=== PATIENT | male | born 1985 | race African-American/Black ===

== ENCOUNTER 2016-09-11 11:57 | Emergency (ER) | payer OTHER ==
[~2016-09-11] VITALS: Ht 170.2 cm; Wt 68.5 kg
[~2016-09-11 11:57] MED LIST: Coumadin dosing per PO; Coumadin,Jantoven PO; Cymbalta PO; DUONEB3 ML IH; Dulcolax PO; Dulcolax PR; Flexeril PO; Habitrol,Nicoderm CQ TD; K-Dur PO; Lioresal PO; Maalox, Mylanta PO; Milk Of Magnesia,MOM PO; Neosporin Ointment TP; PROTONIX40 MG PO; Remove Nicotine Patc TD; SENOKOT S,PE1 TABLET PO; THERAGRAN1 TABLET PO; Zofran PO; oxyCODONE PO
[2016-09-11] MEDS ORDERED: NAPROXEN500 MG PO (18:13)
[2016-09-11 18:26] VITALS: BP 139/100
== END 2016-09-11 18:28 | disposition home or self-care (01) ==
LOC: RME 11:57 → EME 11:57 → RME 18:28
DX: M79.662 Pain in left lower leg (principal); Z79.01 Long term (current) use of anticoagulants; F17.200 Nicotine dependence, unspecified, uncomplicated
CPT/HCPCS: 93971; 99281; 99284

== ENCOUNTER 2017-06-03 14:00 | Emergency (ER) | payer OTHER ==
[~2017-06-03] VITALS: Ht 172.7 cm; Wt 65.9 kg
[~2017-06-03 14:00] MED LIST changes: +NAPROXEN500 MG PO
[2017-06-03 14:07] VITALS: BP 134/97
== END 2017-06-03 16:30 | disposition home or self-care (01) ==
LOC: EME 14:00
PROC: 0HQ1XZZ Repair Face Skin, External Approach (ICD-10-PCS; principal; 2017-06-03)
DX: S01.112A Laceration without foreign body of left eyelid and periocular area, initial encounter (principal); W22.8XXA Striking against or struck by other objects, initial encounter; Y93.B3 Activity, free weights
CPT/HCPCS: 99281; 99284